=== PATIENT | female | born 1995 | race Caucasian/White ===

== ENCOUNTER → 2021-06-07 | Outpatient (CLI) | payer OTHER | LOC: MHCPAIN 13:10 | DX: M54.2 Cervicalgia (principal); M79.18 Myalgia, other site; M54.6 Pain in thoracic spine; M54.5 Low back pain | CPT/HCPCS: G0463 ==

== ENCOUNTER → 2021-06-21 | Outpatient (CLI) | payer OTHER | LOC: MHCPAIN 11:05 | DX: M79.18 Myalgia, other site (principal); M54.2 Cervicalgia; M54.6 Pain in thoracic spine; M54.5 Low back pain ==